=== PATIENT | female | born 1960 | race Caucasian/White ===

== ENCOUNTER 2018-04-21 12:43 | Day surgery (SDC) | payer OTHER ==
[2018-04-16 12:23] VITALS: BMI 25.0
[~2018-04-21 12:43] MED LIST: ALPRAZolam 0.25 MG TABLET PO PRN; DEXAMETHASONE SOD PHOSPHATE 4 MG/1 ML VIAL ONE; GENTAMICIN SO4 80 MG/2 ML VIAL ONE; GLYCOPYRROLATE 0.2 MG/1 ML VIAL ONE; LIDOCAINE HCL 2% JELLY (5 ML/TUBE) ONE; MIDAZOLAM HCL 2 MG/2 ML SINGLE DOSE VIAL ONE; NEOSTIGMINE METHYLSULFATE 0.5 MG/ML - 10 ML MDV ONE; NITROGLYCERIN 2% OINTMENT - 1GM PACKET TD ONE; ONDANSETRON 4 MG/2 ML VIAL IVPB PRN; ONDANSETRON 4 MG/2 ML VIAL IVPUSH PRN; ONDANSETRON 4 MG/2 ML VIAL ONE; PROPOFOL 20 ML ONE; ROCURONIUM BROMIDE 50 MG/5 ML VIAL ONE; SUCCINYLCHOLINE CHLORIDE 200 MG/10 ML VIAL ONE; ceFAZolin SODIUM 1 GM VIAL ONE; ePHEDrine SULFATE 50 MG/1 ML AMPULE ONE; fentaNYL CITRATE 250 MCG/5 ML VIAL ONE; morphine CARPU-JECT 10 MG/1 ML DISP.SYRIN IVPUSH PRN; oxyCODONE HCL 5 MG TABLET PO PRN
[2018-04-21] MEDS ORDERED: LACTATED RINGERS SOLUTION 1,000 ML IV SCH (12:45)
[2018-04-21] MEDS ORDERED: SILVER SULFADIAZINE 1% TOP CREAM 50 GM JAR TP ONE (13:01)
--- NOTE | 2018-04-21 13:04 | OP ---
Operative Note - Note: Operative Date: 04/21/18 Pre-Operative Diagnosis: complication of breast implant reconstruction Operation: bilateral capsulectomies with revision of reconstructions and implant exchanges Findings: above Implants: allergan SSF-345 x 2 Post-Operative Diagnosis: Same as Pre-op Surgeon: Jarrett Carrasco Anesthesia: General Specimens Removed: capsule and explant bilateral and extra tissue on the right Operative Report Dictated: Yes
[2018-04-21] MEDS ORDERED: ALPRAZolam 0.25 MG TABLET PO PRN (13:21)
--- NOTE | 2018-04-21 13:56 | OP ---
DATE OF OPERATION: 04/21/2018 TITAL OF THE PROCEDURE: 1. Right breast revision of reconstructed breast, right breast capsulectomy, removal of intact right breast implant, replacement of right breast implant with smaller smooth, round, silicone gel implant. 2. Left-sided reconstructed breast periprosthetic capsulectomy, left-sided breast revision of reconstructed breast, left-sided removal of intact breast prosthesis, left breast replacement with delayed placement of smooth, round, silicone gel breast implant. PREOPERATIVE DIAGNOSES: 1. Asymmetry of bilateral reconstructed breasts. 2. Right-sided mechanical complication, wound breakdown and exposure of existing breast implant without evidence of infection. ATTENDING SURGEON: Jarrtet Carrasco M.D. ASSISTANTS: None. ANESTHESIA: General endotracheal anesthesia. Patient is counseled preoperatively of all risks, benefits and alternatives to the procedure. She understands. It is discussed with the patient preoperatively the initial plan is for attempted salvage of the exposed implant on the right side. This will require removal of the implant, capsulectomy, washout, and reclosure of the healthy tissue over the implant. This may then create distortions, which may require modification of the contralateral side for symmetry, if they are severe enough. That portion of the procedure is not entirely predictable. Patient understands this and agrees to all necessary additional procedures as needed. The patient was given sequential compression stockings and JUAN hose in the holding area; 1 g of vancomycin is given, 1.5 g of Unasyn are given preoperatively. She was then brought to the operating room. All position points are carefully checked and padded. She was prepped and draped with both a Betadine scrub and ChloraPrep prep. A timeout was called. Patient, procedure, sites, sides are verified. The right breast is addressed first. The thinned fatigued tissue is marked and excised. The prosthetic implant was found to be properly oriented; however, a fold in the implant is poking through the skin and this is likely the reason for the exposure. The implant is removed. There is no pus or purulence. There is no significant evidence of inflammatory granulation tissue. There is no cellulitis. Preoperatively, the patient had a normal white blood cell count, was afebrile. The involved areas of the capsule are excised entirely with Bovie cautery. The capsule was then aggressively curetted throughout its entirety. Several additional areas of capsule are excised to accommodate a new implant without tension. The remainder of the capsule was entirely Bovie cauterized. It is determined that the anterior skin flap is too thin to tolerate a safe total capsulectomy and therefore a partial capsulectomy is performed. However, given the quality of the surrounding tissue, it was determined that performing an epigastric flap would be unnecessarily disfiguring and distort the inframammary fold and a sound healthy closure can be achieved without it. This, however, creates a lift of the right breast and will necessitate a symmetrizing procedure on the contralateral side. At this point, the capsule is copiously irrigated with 3 L of pulse lavage antibiotic solution. Triple antibiotic solution is used. With each liter of the 3 L there is 2 g of Ancef, 50,000 units of bacitracin and 80 mg of gentamicin. The gloves were changed. A Delaney funnel was then used, after hemostasis was meticulously achieved, to place the new implant and the implant is an Allergan SSF-345 implant smooth, round, oriented properly and no-touch technique is used. The inferior capsule repair is able to be performed without tension, a vertical mastopexy pattern. [id number] 3-0 PDS sutures in the capsule inferiorly. The capsulorrhaphy is completed. Elliptical skin excision is required along the vertical scar. This is tailor tacked with gardenia and attention is brought to the other side. A new set is used with new gloves, new light handles, . On the contralateral side, elliptical incision, including the vertical scar is then made. A capsulectomy is performed of the 6 o'clock portion of the capsule through which the implant is removed. It should be noted that the implants that were in place were properly oriented. They were style round back shaped high-profile, textured, silicone gel implants. This was removed. An additional capsulectomy is not required. The pocket is copiously irrigated with triple antibiotic solution as previously described. Using a no-touch technique, the new Allergan Style SSF-345 implant is placed using a fresh Delaney funnel that was positioned into the pocket. It was oriented properly. The implant is oriented. An inferior pole capsulorrhaphy is then performed with a series of [id number] 3-0 PDS sutures. Patient was brought to a seated upright position with the skin tailor tacked. This is excellent symmetry of shape and size; however, nipple position is unacceptable on the left. The elevation of the implant leaves the nipple at the inferior third of the implant, which is significantly disfiguring. Decision is made to deepithelialize skin superior to the preserved nipple in order to elevate it to a position equal to the other side. This is performed with only deepithelialization; no pedicle was required or developed for the nipple areolar. It is inset with a series of interrupted buried deep dermal 3-0 Monocryl suture, followed by a running 6-0 nylon suture. The vertical limb was then closed with skin excision. A series of interrupted deep dermal 3-0 Monocryl suture, followed by a running subcuticular 3-0 Monocryl suture. Dressings are applied with Silvadene. Patient is awoken from anesthesia. Xeroform, 4x4 gauze, ABD gauze and a large size surgical bra. Transferred to Recovery without complication. Lizz [id number]
[2018-04-21] MEDS ORDERED: VANCOMYCIN 1 GRAM (PRE-DOCKED) 1,000 MG/250 ML BAG IVPB SCH (14:00)
[2018-04-21] MEDS: AMPICILLIN NA/SULBACTAM NA 3 GM/100 ML BAG IVPB SCH ×2 (16:24→21:15)
[2018-04-21] MEDS: LACTATED RINGERS SOLUTION 1,000 ML IV SCH (16:31)
[2018-04-21] MEDS: morphine SULFATE 4 MG/ML VIAL IVPUSH PRN ×2 (17:37→22:16)
[2018-04-21] MEDS ORDERED: PT OWN MED DRAWER 7, Y5N ONE (21:03)
[2018-04-21] MEDS: RANITIDINE HCL 150 MG TABLET (FP) PO SCH (21:16)
[2018-04-21] MEDS ORDERED: SERTRALINE HCL 50 MG TABLET (FP) PO SCH (22:00)
[2018-04-21] MEDS ORDERED: FOSINOPRIL SODIUM 10 MG PO SCH (22:00)
[2018-04-21] MEDS ORDERED: CHOLECALCIFEROL (VITAMIN D3) 1,000 UNIT TABLET (FP) PO SCH (22:00)
[2018-04-21] MEDS ORDERED: buPROPion HCL 75 MG TABLET PO SCH (22:00)
[2018-04-21] MEDS ORDERED: GABAPENTIN 300 MG CAPSULE (FP) PO SCH (22:00)
[2018-04-21] MEDS ORDERED: PATIENT'S OWN MEDICATION (NON-FORMULARY) (Dimethyl Fumarate [Tecfidera] 240 MG) PO SCH (22:00)
[2018-04-21] MEDS: VANCOMYCIN 1 GRAM (PRE-DOCKED) 1,000 MG/250 ML BAG IVPB SCH (22:17)
[2018-04-22] MEDS: AMPICILLIN NA/SULBACTAM NA 3 GM/100 ML BAG IVPB SCH ×2 (02:14→09:17)
--- NOTE | 2018-04-22 08:23 | PN ---
Progress Note (short form) - Note Progress Note: All tissues viable, no evidence of infection or collection. Patient subjectively feels well, ambulating, OK for discharge on PO ABX and close follow up on Friday.
[2018-04-22] MEDS: RANITIDINE HCL 150 MG TABLET (FP) PO SCH (09:17)
[2018-04-22] MEDS: VANCOMYCIN 1 GRAM (PRE-DOCKED) 1,000 MG/250 ML BAG IVPB SCH (09:35)
[2018-04-22] MEDS: morphine SULFATE 4 MG/ML VIAL IVPUSH PRN (10:09)
[2018-04-22 10:39] VITALS: BP 101/63; PULSE 68; TEMP 98.8
--- NOTE | 2018-04-22 12:06 | PN ---
Progress Note (short form) - Note Progress Note: ANESTHESIOLOGY POST-OP CHECK 57F s/p bilateral implant exchange and flap revision under general anesthesia POD #1. No acute complaints. Denies N/V. Pain 4/10 and tolerable. Vital Signs Temperature 98.8 F 04/22/18 08:00 Pulse Rate 68 04/22/18 08:00 Respiratory Rate 20 04/22/18 08:00 Blood Pressure 101/63 04/22/18 08:00 O2 Sat by Pulse Oximetry (%) 98 04/22/18 04:37 Active Medications Alprazolam (Xanax -) 0.25 mg PO BID PRN PRN Reason: ANXIETY Bupropion HCl (Wellbutrin -) 150 mg PO HS [facility] Last Admin: 04/21/18 21:17 Dose: 150 mg Cholecalciferol (Vitamin D3 -) 2,000 unit PO HS [facility] Last Admin: 04/21/18 21:16 Dose: 2,000 unit Gabapentin (Neurontin -) 600 mg PO HS [facility] Last Admin: 04/21/18 21:16 Dose: 600 mg Ampicillin Sodium/Sulbactam Sodium (Unasyn 3 Gm (Pre-Docked)) 3 gm in 100 mls @ 200 mls/hr IVPB Q6H-IV [facility] Last Admin: 04/22/18 09:17 Dose: 200 mls/hr Lactated Ringer's (Lactated Ringers Solution) 1,000 mls @ 75 mls/hr IV ASDIR [facility] Last Admin: 04/21/18 16:31 Dose: Not Given Vancomycin HCl (Vancomycin (Pre-Docked)) 1,000 mg in 250 mls @ 166.667 mls/hr IVPB Q12H [facility]; Protocol Last Admin: 04/22/18 09:35 Dose: 166.667 mls/hr Metoprolol Succinate (Toprol Xl -) 100 mg PO HS [facility] Last Admin: 04/21/18 21:16 Dose: Not Given Morphine Sulfate (Morphine Sulfate) 2 mg IVPUSH Q4H PRN PRN Reason: PAIN LEVEL 6-10 Last Admin: 04/22/18 10:09 Dose: 2 mg Non-Formulary Medication (Dimethyl Fumarate [Tecfidera]) 240 mg PO BID [facility] Non-Formulary Medication (Fosinopril Sodium [Fosinopril Sodium]) 10 mg PO HS [facility] Ondansetron HCl (Zofran Injection) 8 mg IVPB Q6H PRN PRN Reason: NAUSEA Oxycodone HCl (Roxicodone -) 10 mg PO Q4H PRN PRN Reason: PAIN LEVEL 4 - 6 Ranitidine HCl (Zantac -) 150 mg PO BID [facility] Last Admin: 04/22/18 09:17 Dose: 150 mg Sertraline HCl (Zoloft -) 50 mg PO [facility] Last Admin: 04/21/18 21:16 Dose: 50 mg Gen: awake, alert No apparent anesthesia complications. Pain controlled. continue management as per primary team.
[2018-04-22] MEDS: LACTATED RINGERS SOLUTION 1,000 ML IV SCH (13:34)
--- NOTE | 2018-04-22 16:37 | PATH ---
Surgical Pathology Report Patient Name: MITCH VALDOVINOS [facility]. Rec. #: [id number] /Age/Gender: 1960 (Age: 57) / F Account: <[id number]> Location: [facility] Taken: 04/21/2018 Received: 04/21/2018 Reported: 04/22/2018 Physicians: Jarrett Carrasco Specimen(s) Received A: RIGHT BREAST CAPSULE B: RIGHT BREAST EXPLANT C: LEFT BREAST EXPLANT D: LEFT BREAST CAPSULE E: RIGHT BREAST TISSUE Clinical History Right breast reconstruction Final Diagnosis A. BREAST CAPSULE, RIGHT, CAPSULECTOMY: DENSE FIBROUS TISSUE CONSISTENT WITH CAPSULE. B. BREAST, IMPLANT, RIGHT, EXPLANTATION: BREAST IMPLANT. MACROSCOPIC DIAGNOSIS. C. BREAST, IMPLANT, LEFT, EXPLANTATION: BREAST IMPLANT. MACROSCOPIC DIAGNOSIS. D. BREAST CAPSULE, LEFT, CAPSULECTOMY: DENSE FIBROUS AND FIBROADIPOSE TISSUE WITH MILD CHRONIC INFLAMMATION AND FOCAL SUTURE GRANULOMA CONSISTENT WITH CAPSULE. SKIN WITHOUT SIGNIFICANT PATHOLOGIC FINDINGS E. BREAST TISSUE, RIGHT, EXCISION: SOFT TISSUE WITH FIBRINOUS EXUDATE, ACUTE AND CHRONIC INFLAMMATION AND REACTIVE CHANGES. Electronically Signed Yessica Edward M.D. Gross Description A. Received in formalin, labeled "right breast capsule" are multiple mclain, irregular portions of soft tissue measuring 2 x 1 x 0.3 cm in aggregate. Manager Practice sections are submitted in two cassettes. B. Received in a container, labeled "right breast explant" is a breast explant weighing 429 grams and measuring 14 x 13 x 5 cm. For gross examination only. C. Received in a container, labeled "left breast explant" is a breast explant weighing 429 grams and measuring 14 x 13 x 5 cm. For gross examination only. D. Received in formalin, labeled "left breast capsule" are two pieces mclain, irregular portions of soft tissue measuring 3.5 x 1.5 x 0.3 and 4 x 1 x 0.3 cm, respectively. Separate one piece of skin measuring 3 x 1.2 x 1 cm is also present. Manager Practice sections are submitted in two cassettes: D1: capsular tissue; D2: skin E. Received in formalin, labeled "right breast tissue" are 4 pieces mclain, irregular portion of soft tissue measuring 2.5 x 2.5 x 0.3 cm. in aggregate. The specimens are entirely submitted in 2 cassettes. KWS/04/21/2018 ehsan/04/21/2018
== END 2018-04-22 13:45 | disposition home or self-care (01) ==
LOC: FASU 12:43 → FM/S 12:43 → FASU 04-22 13:45
PROVIDERS: ATTEND Plastic Surgery
PROC: 0HRV07Z Replacement of Bilateral Breast with Autologous Tissue Substitute, Open Approach (ICD-10-PCS; 2018-04-21)
PROC: 0HWU0JZ Revision of Synthetic Substitute in Left Breast, Open Approach (ICD-10-PCS; principal; 2018-04-21 09:00)
PROC: 0HWT0JZ Revision of Synthetic Substitute in Right Breast, Open Approach (ICD-10-PCS; 2018-04-21 09:00)
DX: N65.1 Disproportion of reconstructed breast (principal); T85.41XA Breakdown (mechanical) of breast prosthesis and implant, initial encounter; Y83.8 Other surgical procedures as the cause of abnormal reaction of the patient, or of later complication, without mention of misadventure at the time of the procedure; Y92.89 Other specified places as the place of occurrence of the external cause; Z90.13 Acquired absence of bilateral breasts and nipples
CPT/HCPCS: 87070; 87205; 94760

== ENCOUNTER 2023-11-29 14:04 | Emergency (ER) | payer OTHER ==
[2023-11-29 14:10] VITALS: BP 117/70; PULSE 94; RESP 20; TEMP 97.8; BMI 28.3
== END 2023-11-29 15:28 | disposition home or self-care (01) ==
LOC: FER 14:04
PROC: 0HQGXZZ Repair Left Hand Skin, External Approach (ICD-10-PCS; principal; 2023-11-29)
PROC: 2W3KX1Z Immobilization of Left Finger using Splint (ICD-10-PCS; 2023-11-29)
DX: S61.012A Laceration without foreign body of left thumb without damage to nail, initial encounter (principal); W25.XXXA Contact with sharp glass, initial encounter
CPT/HCPCS: 73140-TC-LT-FY; 99283-25